=== PATIENT | male | born 1940 | race Caucasian/White ===

== ENCOUNTER 2021-01-09 05:58 | Inpatient (IN) ==
[2021-01-03 12:04] LABS: Basophils % 0.5 % (0.0-0.8); Eosinophils # 0.1 10*3/uL (0.0-0.87); Eosinophils % 1.9 % (0.00-10.9); Hematocrit 45.9 VOL% (42.0-52.0); Hemoglobin 15.4 GM/DL (14.0-18.0); Immature Granulocytes % 0.4 %; Immature Granulocytes Absolute 0.02 #; Lymphocytes % 34.9 % (21.2-54.2); Mean Corpuscular HGB Conc 33.6 GM/DL (32-36); Mean Corpuscular Volume 98.1 FL (87-102); Mean Platelet Volume 10.9 FL (9.6-12.0); Monocytes % 11.3 % (1.7-12.7); Platelet Count 265 T/CUMM (130-400); Red Blood Count 4.68 MC/CUMM (3.8-5.5); Red Cell Distribution Width 13.1 % (9.3-17.3); White Blood Count 5.7 T/CUMM (4-12)
[2021-01-03 12:25] LABS: Bilirubin,Total 1.2 MG/DL (0.20-1.00); Calcium 9.4 MG/DL (8.5-10.1); Osmolality,Calculated 282.1 MOS/KG (273-304); Potassium 4.3 MMOL/L (3.5-5.1); Total Protein 7.5 G/DL (6.4-8.2)
[~2021-01-09 05:58] MED LIST: ACETAMINOPHEN 500 MG TABLET PO ONE; FAMOTIDINE 20 MG TABLET PO ONE; GABAPENTIN 400 MG CAPSULE PO ONE
[2021-01-09] MEDS ORDERED: cefTRIAXone 1,000 MG in SODIUM CHLORIDE 0.9% 100 ML IV ONE (06:00)
[2021-01-09] MEDS ORDERED: propofoL 200 MG/20 ML VIAL IV ONE (06:26)
[2021-01-09] MEDS ORDERED: LIDOCAINE 2% 5 ML VIAL ONE (06:26)
[2021-01-09] MEDS ORDERED: ROCURONIUM 50 MG/5 ML VIAL IV ONE ×2 (06:26→11:45)
[2021-01-09] MEDS ORDERED: fentaNYL 100 MCG/2 ML VIAL ONE ×2 (06:27→08:52)
[2021-01-09] MEDS ORDERED: DEXAMETHASONE 4 MG/1 ML VIAL ONE (06:49)
[2021-01-09] MEDS ORDERED: MIDAZOLAM 2 MG/2 ML VIAL ONE (06:49)
[2021-01-09] MEDS ORDERED: LIDOCAINE 1% 5 ML VIAL ONE (06:49)
[2021-01-09] MEDS ORDERED: ROPIVACAINE 0.5% 30 ML VIAL ONE ×3 (06:49→08:54)
[2021-01-09] MEDS ORDERED: LEVOFLOXACIN 500 MG TABLET PO ONE (07:04)
[2021-01-09] MEDS ORDERED: DIAZEPAM 5 MG TABLET ONE (07:26)
[2021-01-09] MEDS ORDERED: GABAPENTIN 400 MG CAPSULE ONE (07:26)
[2021-01-09] MEDS ORDERED: FAMOTIDINE 20 MG TABLET ONE (07:27)
[2021-01-09] MEDS ORDERED: ACETAMINOPHEN 500 MG TABLET ONE (07:27)
[2021-01-09] MEDS: ALVIMOPAN 12 MG CAPSULE PO SCH ×3 (07:29→21:58)
[2021-01-09] MEDS: LACTATED RINGERS 1,000 ML IV SCH ×3 (08:05→11:15)
[2021-01-09] MEDS ORDERED: PHENYLEPHRINE 10 MG/1 ML VIAL IV ONE ×2 (08:43→11:35)
[2021-01-09] MEDS ORDERED: SODIUM CHLORIDE 0.9% 250 ML IV ONE ×2 (08:43→11:36)
[2021-01-09] MEDS ORDERED: CLINDAMYCIN INJ 600 MG/50 ML PREMIX IV ONE (08:57)
[2021-01-09] MEDS ORDERED: HEPARIN/NACL 0.9% 2 UNITS/ML 1,000 UNIT/500 ML BAG IV ONE (09:00)
[2021-01-09] MEDS ORDERED: ACETAMINOPHEN INJ 1,000 MG/100 ML VIAL IV ONE (09:27)
[2021-01-09] MEDS ORDERED: ALBUMIN 5% 12.5 GM/250 ML VIAL IV ONE (09:35)
[2021-01-09] MEDS ORDERED: LACTATED RINGERS 1,000 ML IV ONE (09:58)
[2021-01-09 10:23] LABS: Bilirubin,Urine Negative (Negative); Blood, Urine Negative (Negative); Glucose,Urine (UA) Negative (Negative); Ketones,Urine Negative (Negative); Mucus,Urine Occasional /LPF (Occasional); Nitrite,Urine Negative (Negative); Protein,Urine Negative; RBC,Urine 1 /HPF (0-4); Urine Appearance CLEAR (Clear); Urine Color Yellow (Yellow); Urine Specific Gravity 1.013 (1.001-1.035); Urine Urobilinogen < 2.0 EU/DL (0.2-1.0)
[2021-01-09] MEDS ORDERED: SUGAMMADEX 200 MG/2 ML VIAL IV ONE (11:44)
[2021-01-09] MEDS ORDERED: PROMETHAZINE 25 MG/1 ML VIAL IM PRN (12:01)
[2021-01-09] MEDS ORDERED: diphenhydrAMINE 50 MG/1 ML VIAL IV PRN (12:03)
[2021-01-09] MEDS ORDERED: METHOCARBAMOL 500 MG TABLET PO PRN (12:05)
[2021-01-09] MEDS ORDERED: HYDROmorphone 2 MG/1 ML VIAL IV PRN (12:47)
[2021-01-09] MEDS ORDERED: ONDANSETRON 4 MG/2 ML VIAL IV PRN (12:47)
[2021-01-09 12:58] LABS: Basophils % 0.2 % (0.0-0.8); Eosinophils % 0.3 % (0.00-10.9); Hematocrit 39.1 VOL% (42.0-52.0); Hemoglobin 13.3 GM/DL (14.0-18.0); Immature Granulocytes % 0.2 %; Immature Granulocytes Absolute 0.02 #; Lymphocytes # 0.8 10*3/uL (1.4-4.0); Lymphocytes % 9.2 % (21.2-54.2); Mean Corpuscular Volume 97.8 FL (87-102); Mean Platelet Volume 9.8 FL (9.6-12.0); Monocytes % 8.3 % (1.7-12.7); Neutrophils % 81.8 % (38.7-73.9); Platelet Count 214 T/CUMM (130-400); Red Cell Distribution Width 12.8 % (9.3-17.3); White Blood Count 9.2 T/CUMM (4-12)
[2021-01-09 13:19] LABS: Calcium 8.4 MG/DL (8.5-10.1); Osmolality,Calculated 278.5 MOS/KG (273-304); Potassium 3.6 MMOL/L (3.5-5.1)
[2021-01-09] MEDS ORDERED: hydrALAZINE 20 MG/1 ML VIAL IV PRN (16:13)
[2021-01-09] MEDS: HYDROmorphone 2 MG/1 ML VIAL IV PRN ×2 (16:38→20:46)
[2021-01-09] MEDS: SODIUM CHLORIDE 0.9% 1,000 ML IV SCH (18:57)
[2021-01-09] MEDS: ACETAMINOPHEN 325 MG TABLET PO SCH (18:58)
[2021-01-09] MEDS: ONDANSETRON 4 MG/2 ML VIAL IV PRN (20:50)
[2021-01-09] MEDS ORDERED: ALVIMOPAN 12 MG CAPSULE PO SCH (21:00)
[2021-01-09] MEDS ORDERED: NON-FORMULARY MEDICATION (Omeprazole 20 mg Capsule,Delayed Release(Dr/Ec)) PO SCH (21:00)
[2021-01-09] MEDS: traZODone 50 MG TABLET PO SCH (21:55)
[2021-01-09] MEDS: PREGABALIN 75 MG CAPSULE PO SCH (21:56)
[2021-01-09] MEDS: MOMETASONE 50 MCG NASAL SPRAY 17 GM BOTTLE BOTH NARES SCH (21:57)
[2021-01-10] MEDS: HYDROmorphone 2 MG/1 ML VIAL IV PRN (02:15)
[2021-01-10] MEDS: ONDANSETRON 4 MG/2 ML VIAL IV PRN (02:27)
[2021-01-10] MEDS: ACETAMINOPHEN 325 MG TABLET PO SCH ×4 (02:47→17:55)
[2021-01-10] MEDS: SODIUM CHLORIDE 0.9% 1,000 ML IV SCH (05:11)
[2021-01-10] MEDS: LATANOPROST 0.005% OPH SOLN 2.5 ML BOTTLE BOTH EYES SCH (05:20)
[2021-01-10 05:37] LABS: Basophils % 0.2 % (0.0-0.8); Hematocrit 38.2 VOL% (42.0-52.0); Hemoglobin 12.9 GM/DL (14.0-18.0); Immature Granulocytes % 0.6 %; Immature Granulocytes Absolute 0.05 #; Lymphocytes % 10.6 % (21.2-54.2); Mean Corpuscular HGB Conc 33.8 GM/DL (32-36); Mean Corpuscular Volume 99.5 FL (87-102); Mean Platelet Volume 9.8 FL (9.6-12.0); Monocytes % 9.8 % (1.7-12.7); Neutrophils % 78.8 % (38.7-73.9); Platelet Count 205 T/CUMM (130-400); Red Blood Count 3.84 MC/CUMM (3.8-5.5); Red Cell Distribution Width 12.7 % (9.3-17.3)
[2021-01-10 05:55] LABS: Calcium 8.2 MG/DL (8.5-10.1); Osmolality,Calculated 275.7 MOS/KG (273-304); Potassium 4.3 MMOL/L (3.5-5.1)
[2021-01-10] MEDS: oxyCODONE/ACETAMINOPHEN 5-325 MG TABLET PO PRN ×3 (08:10→17:55)
[2021-01-10] MEDS: DOCUSATE SODIUM 100 MG CAPSULE PO PRN ×2 (08:11→20:44)
[2021-01-10] MEDS: ASPIRIN EC 81 MG TABLET PO SCH (08:11)
[2021-01-10] MEDS: amLODIPine 5 MG TABLET PO SCH (08:11)
[2021-01-10] MEDS: LORATADINE 10 MG TABLET PO SCH (08:12)
[2021-01-10] MEDS: MONTELUKAST 10 MG TABLET PO SCH (08:12)
[2021-01-10] MEDS: TAMSULOSIN 0.4 MG CAPSULE PO SCH (08:13)
[2021-01-10] MEDS: SERTRALINE 100 MG TABLET PO SCH (08:13)
[2021-01-10] MEDS: PANTOPRAZOLE 40 MG TABLET PO SCH (08:13)
[2021-01-10] MEDS: TRIAMTERENE/HCTZ 37.5-25 MG TABLET PO SCH (08:14)
[2021-01-10] MEDS: ALVIMOPAN 12 MG CAPSULE PO SCH ×2 (08:14→20:43)
[2021-01-10] MEDS: PREGABALIN 75 MG CAPSULE PO SCH ×2 (09:25→20:44)
[2021-01-10] MEDS: MOMETASONE 50 MCG NASAL SPRAY 17 GM BOTTLE BOTH NARES SCH ×2 (09:26→20:47)
[2021-01-10] MEDS: POLYETHYLENE GLYCOL POWDER 17 GM PACK PO SCH ×2 (16:21→17:59)
[2021-01-10 20:05] LABS: Bilirubin,Urine Negative (Negative); Blood, Urine Small mg/dL (Negative); Glucose,Urine (UA) Negative (Negative); Ketones,Urine Negative (Negative); Mucus,Urine Occasional /LPF (Occasional); Nitrite,Urine Negative (Negative); Protein,Urine Negative; RBC,Urine 3 /HPF (0-4); Urine Appearance CLEAR (Clear); Urine Color Yellow (Yellow); Urine Specific Gravity 1.012 (1.001-1.035); Urine Urobilinogen < 2.0 EU/DL (0.2-1.0)
[2021-01-10] MEDS: traZODone 50 MG TABLET PO SCH (20:44)
[2021-01-11] MEDS: LATANOPROST 0.005% OPH SOLN 2.5 ML BOTTLE BOTH EYES SCH (03:33)
[2021-01-11] MEDS: ACETAMINOPHEN 325 MG TABLET PO SCH ×4 (03:35→21:12)
[2021-01-11 06:01] LABS: Basophils % 0.4 % (0.0-0.8); Eosinophils # 0.2 10*3/uL (0.0-0.87); Hematocrit 37.2 VOL% (42.0-52.0); Hemoglobin 12.2 GM/DL (14.0-18.0); Immature Granulocytes % 0.4 %; Immature Granulocytes Absolute 0.03 #; Lymphocytes # 1.5 10*3/uL (1.4-4.0); Lymphocytes % 19.7 % (21.2-54.2); Mean Corpuscular HGB Conc 32.8 GM/DL (32-36); Mean Corpuscular Volume 100.8 FL (87-102); Mean Platelet Volume 9.9 FL (9.6-12.0); Neutrophils % 65.5 % (38.7-73.9); Platelet Count 193 T/CUMM (130-400); Red Blood Count 3.69 MC/CUMM (3.8-5.5); Red Cell Distribution Width 12.7 % (9.3-17.3); White Blood Count 7.6 T/CUMM (4-12)
[2021-01-11 06:12] LABS: Calcium 8.3 MG/DL (8.5-10.1); Osmolality,Calculated 275.7 MOS/KG (273-304); Potassium 4.1 MMOL/L (3.5-5.1)
[2021-01-11] MEDS: TAMSULOSIN 0.4 MG CAPSULE PO SCH (08:04)
[2021-01-11] MEDS: ALVIMOPAN 12 MG CAPSULE PO SCH ×2 (08:04→21:12)
[2021-01-11] MEDS: PREGABALIN 75 MG CAPSULE PO SCH ×2 (08:05→21:11)
[2021-01-11] MEDS: PANTOPRAZOLE 40 MG TABLET PO SCH (08:05)
[2021-01-11] MEDS: MONTELUKAST 10 MG TABLET PO SCH (08:06)
[2021-01-11] MEDS: TRIAMTERENE/HCTZ 37.5-25 MG TABLET PO SCH (08:07)
[2021-01-11] MEDS: ASPIRIN EC 81 MG TABLET PO SCH (08:07)
[2021-01-11] MEDS: LORATADINE 10 MG TABLET PO SCH (08:07)
[2021-01-11] MEDS: POLYETHYLENE GLYCOL POWDER 17 GM PACK PO SCH (08:09)
[2021-01-11] MEDS: amLODIPine 5 MG TABLET PO SCH (08:16)
[2021-01-11] MEDS: SERTRALINE 100 MG TABLET PO SCH (08:16)
[2021-01-11] MEDS: ZINC OXIDE PASTE 113 GM TUBE TOP SCH ×2 (08:16→09:01)
[2021-01-11] MEDS: MOMETASONE 50 MCG NASAL SPRAY 17 GM BOTTLE BOTH NARES SCH (09:01)
[2021-01-11 13:40] LABS: Calcium 8.4 MG/DL (8.5-10.1); Osmolality,Calculated 276.8 MOS/KG (273-304); Potassium 3.9 MMOL/L (3.5-5.1)
[2021-01-11] MEDS ORDERED: NITROFURANTOIN MACRO/MONO 100 MG CAPSULE PO SCH (18:00)
[2021-01-11] MEDS: traZODone 50 MG TABLET PO SCH (21:13)
[2021-01-12] MEDS: ACETAMINOPHEN 325 MG TABLET PO SCH ×2 (03:13→06:03)
[2021-01-12 05:47] LABS: Basophils % 0.3 % (0.0-0.8); Eosinophils # 0.3 10*3/uL (0.0-0.87); Eosinophils % 3.6 % (0.00-10.9); Hematocrit 39.4 VOL% (42.0-52.0); Immature Granulocytes % 0.4 %; Immature Granulocytes Absolute 0.03 #; Lymphocytes # 1.5 10*3/uL (1.4-4.0); Lymphocytes % 21.3 % (21.2-54.2); Mean Corpuscular Volume 99.5 FL (87-102); Mean Platelet Volume 9.8 FL (9.6-12.0); Monocytes % 10.4 % (1.7-12.7); Platelet Count 204 T/CUMM (130-400); Red Blood Count 3.96 MC/CUMM (3.8-5.5); Red Cell Distribution Width 12.4 % (9.3-17.3); White Blood Count 7.1 T/CUMM (4-12)
[2021-01-12 06:21] LABS: Calcium 8.6 MG/DL (8.5-10.1); Osmolality,Calculated 277.5 MOS/KG (273-304); Potassium 4.2 MMOL/L (3.5-5.1)
[2021-01-12 06:21] LABS: Anisocytosis 1+; Band Neutrophils 1 % (0-10); Eosinophils 7 % (0-10); Lymphocytes 26 % (20-55); Macrocytosis 1+; Platelet Estimate Normal; Segmented Neutrophils 66 % (50-85); Total Cells Counted 100
[2021-01-12 06:22] LABS: Atypical Lymphocytes Few
[2021-01-12] MEDS: PANTOPRAZOLE 40 MG TABLET PO SCH (08:25)
[2021-01-12] MEDS: amLODIPine 5 MG TABLET PO SCH (08:25)
[2021-01-12] MEDS: DOCUSATE SODIUM 100 MG CAPSULE PO PRN (08:25)
[2021-01-12] MEDS: ASPIRIN EC 81 MG TABLET PO SCH (08:25)
[2021-01-12] MEDS: TRIAMTERENE/HCTZ 37.5-25 MG TABLET PO SCH (08:27)
[2021-01-12] MEDS: ALVIMOPAN 12 MG CAPSULE PO SCH (08:28)
[2021-01-12] MEDS: LORATADINE 10 MG TABLET PO SCH (08:30)
[2021-01-12] MEDS: MONTELUKAST 10 MG TABLET PO SCH (08:30)
[2021-01-12] MEDS: PREGABALIN 75 MG CAPSULE PO SCH (08:30)
[2021-01-12] MEDS: POLYETHYLENE GLYCOL POWDER 17 GM PACK PO SCH (08:31)
[2021-01-12] MEDS: TAMSULOSIN 0.4 MG CAPSULE PO SCH (08:39)
[2021-01-12] MEDS: MOMETASONE 50 MCG NASAL SPRAY 17 GM BOTTLE BOTH NARES SCH (08:42)
[2021-01-12] MEDS: SERTRALINE 100 MG TABLET PO SCH (08:42)
[2021-01-12] MEDS: ZINC OXIDE PASTE 113 GM TUBE TOP SCH (10:52)
[2021-01-12 11:54] VITALS: BP 138/74
== END 2021-01-12 13:00 | disposition home or self-care (01) | DRG 657 ==
LOC: N.OR 05:58 → N.SDSINP 06:00 → N.OB 13:36
PROVIDERS: ADMIT Surgery; ATTEND Surgery